=== PATIENT | female | born 1985 | race Two or more races ===

== ENCOUNTER 2019-07-09 06:32 | Inpatient (IN) ==
[2019-07-09] MEDS ORDERED: D5LR 1L W PITOCIN 10 UNITS/L 10 UNITS/1,000 ML BAG IV ONE (06:57)
[2019-07-09] MEDS ORDERED: D5 1/2 NS 1000 ML 1,000 ML IV ONE (06:58)
[2019-07-09] MEDS ORDERED: MORPHINE SULFATE INJ 2 MG INJ IVP PRN (07:28)
[2019-07-09] MEDS ORDERED: D5LR 1L W PITOCIN 10 UNITS/L 10 UNITS/1,000 ML BAG IV PRN (07:28)
[2019-07-09] MEDS ORDERED: PITOCIN IVP ONE (07:28)
[2019-07-09] MEDS ORDERED: PHENERGAN INJ 25 MG IM PRN ×2 (07:28→14:19)
[2019-07-09] MEDS ORDERED: REGLAN INJ 10 MG VIAL IVP PRN (07:28)
[2019-07-09 08:00] LABS: BASOPHILS # (AUTO) 0.1 X10^3/uL (0.0-0.1); BASOPHILS % (AUTO) 0.8 % (0.2-1.0); EOSINOPHILS # (AUTO) 0.4 x10^3/uL (0.0-0.2); EOSINOPHILS % (AUTO) 4.8 % (0.9-2.9); HEMATOCRIT 22.2 % (36.0-47.0); LYMPHOCYTES # (AUTO) 2.2 X10^3/uL (1.3-2.9); LYMPHOCYTES % (AUTO) 23.1 % (21.0-51.0); MEAN CORPUSCULAR HEMOGLOBIN 19.6 pg (27.0-34.0); MEAN CORPUSCULAR HGB CONC 30.5 g/dL (33.0-35.0); MEAN CORPUSCULAR VOLUME 64.4 fL (80.0-100.0); MEAN PLATELET VOLUME 8.1 fL (7.4-11.0); MONOCYTES # (AUTO) 0.6 x10^3/uL (0.3-0.8); MONOCYTES % (AUTO) 6.2 % (0.0-13.0); NEUTROPHILS # (AUTO) 6.1 x10^3/uL (2.2-4.8); NEUTROPHILS % (AUTO) 65.1 % (42.0-75.0); PLATELET COUNT 201 X10^3/uL (150.0-450.0); RED BLOOD COUNT 3.44 X10^6/uL (3.5-5.4); RED CELL DISTRIBUTION WIDTH 21.3 % (11.6-16.5); WHITE BLOOD COUNT 9.4 X10^3/uL (3.6-10.0)
[2019-07-09] MEDS ORDERED: D5 1/2 NS 1000 ML 1,000 ML IV SCH (08:00)
[2019-07-09 08:06] LABS: BLOOD UREA NITROGEN 12 mg/dL (7-18); CALCIUM 8.1 mg/dL (8.5-10.1); CARBON DIOXIDE 22.4 mmol/L (21-32); CHLORIDE 103 mmol/L (98-107); COR NA(FOR HYPERGLY) 136 mmol/L (136-145); CREATININE 0.61 mg/dL (0.55-1.02); SODIUM 136 mmol/L (136-145); eGFR NON BLACK RACES > 60 (>60)
[2019-07-09 08:08] LABS: HEMOGLOBIN 6.8 g/dL (12.0-16.0); HYPOCHROMASIA 3+; PLATELET MORPHOLOGY COMMENT NORMAL (NORMAL)
[2019-07-09 08:09] LABS: ANISOCYTOSIS 1+; MICROCYTOSIS 2+
[2019-07-09] MEDS ORDERED: NS 100 ML IV 100 ML with VENOFER 400 MG IV NR ×2 (08:14)
[2019-07-09] MEDS ORDERED: NS 100 ML IV 100 ML IV ONE (09:12)
[2019-07-09 09:55] LABS: BILIRUBIN,URINE NEGATIVE (NEGATIVE); BLOOD/HEMOGLOBIN,URINE NEGATIVE (NEGATIVE); GLUCOSE, URINE NEGATIVE (NEGATIVE); KETONES,URINE NEGATIVE (NEGATIVE); LEUKOCYTE ESTERASE ,URINE 1+ (NEGATIVE); NITRITES,URINE NEGATIVE (NEGATIVE); PROTEIN,URINE 2+ (NEGATIVE); UROBILINOGEN,URINE NORMAL (NORMAL)
[2019-07-09 10:06] LABS: APPEARANCE,URINE CLEAR (CLEAR); BACTERIA,URINE NEGATIVE /HPF (NEGATIVE); COLOR,URINE YELLOW (YELLOW); RBC,URINE 0-2 /HPF (0-3); SQUAMOUS EPITHELIAL CELL,UR FEW /HPF (NEGATIVE)
[2019-07-09] MEDS ORDERED: NAROPIN EPIDURAL 0.2% + FENTANYL 90MCG 60 ML EPI ONE (10:43)
[2019-07-09] MEDS ORDERED: LR 1000 ML IV 1,000 ML IV ONE (10:43)
[2019-07-09] MEDS ORDERED: FENTANYL INJ 100 mcg ONE (10:43)
[2019-07-09] MEDS ORDERED: D5 1/2 NS 1L W PITOCIN 20 UNITS/L 20 UNITS/1,000 ML BAG IV ONE (10:56)
[2019-07-09] MEDS ORDERED: PITOCIN ONE (10:56)
[2019-07-09] MEDS ORDERED: MOTRIN TAB 800 MG PO PRN (14:19)
[2019-07-09] MEDS ORDERED: D5 1/2 NS 1000 ML 1,000 ML with PITOCIN 20 UNITS IV SCH ×2 (15:00)
[2019-07-09] MEDS ORDERED: ADACEL or BOOSTRIX TDaP VACCINE IM ONE (15:39)
[2019-07-10 07:02] LABS: HEMATOCRIT 21.7 % (36.0-47.0)
[2019-07-10 07:06] LABS: HEMOGLOBIN 6.7 g/dL (12.0-16.0)
[2019-07-10] MEDS ORDERED: ADACEL or BOOSTRIX TDaP VACCINE IM ONE (08:38)
[2019-07-10] MEDS ORDERED: NS 100 ML IV 100 ML with VENOFER 400 MG IV NR ×4 (09:17)
[2019-07-10] MEDS: PRENATAL PLUS PO SCH (09:22)
[2019-07-11 06:11] LABS: HEMOGLOBIN 6.1 g/dL (12.0-16.0)
[2019-07-11 06:12] LABS: HEMATOCRIT 19.8 % (36.0-47.0)
[2019-07-11] MEDS ORDERED: NS 100 ML IV 100 ML with VENOFER 400 MG IV NR ×2 (08:00)
[2019-07-11] MEDS: PRENATAL PLUS PO SCH (08:49)
[2019-07-11 12:15] VITALS: BP 126/56
== END 2019-07-11 13:50 | disposition home or self-care (01) | DRG 807 ==
LOC: LD 06:32 → MED/SURG 15:25
PROVIDERS: ADMIT Obstetrics & Gynecology Obstetrics; ATTEND Obstetrics & Gynecology Obstetrics
DX: Z3A.39 39 weeks gestation of pregnancy; Z23 Encounter for immunization; Z37.0 Single live birth; O80 Encounter for full-term uncomplicated delivery
CPT/HCPCS: 36415; 59409; 80048; 81001; 82607; 82728; 82746; 83540; 84466; 85014; 85018; 85025; 86592; 86850; 86900; 86901; 90715; A4216; A4222; J1756; J2590; J3010; J7050; J7120; S0197; S5010